=== PATIENT | male | born 1990 ===

== ENCOUNTER 2017-05-12 22:23 | Emergency (ER) | payer OTHER ==
[2017-05-12] MEDS ORDERED: Sodium Chloride 0.9% 1,000 ML IV STA (22:41)
[2017-05-12 23:03] LABS: URINE BACTERIA RARE (<OCC); URINE BILIRUBIN NEGATIVE (NEGATIVE); URINE BLOOD LARGE (NEGATIVE); URINE CLARITY CLEAR (Clear); URINE COLOR YELLOW (YELLOW); URINE GLUCOSE (UA) NEG (Normal); URINE LEUKOCYTE ESTERASE NEG Leu/uL (Negative); URINE NITRATE NEGATIVE (NEGATIVE); URINE PROTEIN 30 mg/dL (NEGATIVE); URINE UROBILINOGEN 0.2-1.0 mg/dL (0.2-1.0)
[2017-05-12 23:07] LABS: BASO # 0.1 K/uL (0.0-0.2); BASO % 0.5 % (0.0-2.0); EOS # 0.3 K/uL (0.0-0.7); EOS % 2.2 % (0.0-4.0); HEMOGLOBIN 14.1 g/dL (12.0-18.0); LYMPH % 17.4 % (20.0-40.0); MEAN CELL VOLUME 82.1 fl (80.0-94.0); MEAN CORPUSCULAR HEMOGLOBIN 28.4 pg (27.0-31.0); MEAN CORPUSCULAR HGB CONC 34.6 g/dL (33.0-37.0); MEAN PLATELET VOLUME 8.4 fl (7.2-11.7); MONO # 0.6 K/uL (0.0-0.8); MONO % 5.3 % (0.0-10.0); NEUT # 8.7 K/uL (1.8-7.0); NEUT % 74.6 % (50.0-75.0); NRBC % 0.1 % (0.0-0.0); RBC 4.96 Mil/uL (4.40-5.90); RED CELL DISTRIBUTION WIDTH 12.7 % (11.5-14.5); WHITE BLOOD COUNT 11.6 K/uL (4.8-10.8)
[2017-05-12 23:10] LABS: BLOOD UREA NITROGEN 16 mg/dl (9-20); CALCIUM 9.5 mg/dL (8.4-10.2); GFR AFRICAN-AMERICAN > 60; GFR NON-AFRICAN AMERICAN > 60
[2017-05-13 00:44] VITALS: BP 117/51; PULSE 57; RESP 14; TEMP 98.3; O2SAT 95
--- NOTE | 2017-05-13 00:55 | ED PDOC ---
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 denies: Other ((-) hematuria) Additional Complaint(s): 26 year old male presents to ED with complaints of intermittent right sided flank pain x2 weeks and has no past medical history. 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 (-) hematuria, (+) nausea, vomiting, and difficulty passing urine. PCP: [facility] Past Medical History Reviewed: Historical Data, Nursing Documentation, Vital Signs Vital Signs: Last Vital Signs Temp 98.3 F 05/13/17 00:43 Pulse 57 L 05/13/17 00:43 Resp 14 05/13/17 00:43 BP 117/51 L 05/13/17 00:43 Pulse Ox 95 05/13/17 01:18 - Medical History PMH: No Chronic Diseases - Surgical History Surgical History: Denies: No Surg Hx - Family History Family History: States: No Known Family Hx - Home Medications Home Medications: Ambulatory Orders Medication Instructions Recorded Ibuprofen [Motrin Tab] 600 mg PO Q6 #30 tab 05/13/17 Tamsulosin [Flomax] 0.4 mg PO DAILY #20 cap 05/13/17 traMADol [Ultram] 50 mg PO Q8 #12 tab 05/13/17 - Allergies Allergies/Adverse Reactions: Allergies Allergy/AdvReac Type Severity Reaction Status Date / Time No Known Allergies Allergy Verified 05/12/17 22:25 Review of Systems ROS Statement: Except As Marked, All Systems Reviewed And Found Negative Gastrointestinal: Positive for: Nausea, Vomiting, Abdominal Pain (right sided flank pain) Genitourinary Male: Positive for: Other (difficulty passing urine). Negative for: Hematuria Physical Exam - Reviewed Nursing Documentation Reviewed: Yes Vital Signs Reviewed: Yes - Physical Exam Appears: Positive for: Non-toxic, Uncomfortable Skin: Positive for: Normal Color, Warm, Dry Cardiovascular/Chest: Positive for: Regular Rate, Rhythm. Negative for: Murmur Respiratory: Positive for: Normal Breath Sounds. Negative for: Respiratory Distress Gastrointestinal/Abdominal: Positive for: Soft, Tenderness Back: Positive for: R CVA Tenderness Extremity: Positive for: Normal ROM. Negative for: Deformity Neurologic/Psych: Positive for: Alert, Oriented. Negative for: Motor/Sensory Deficits - Laboratory Results Result Diagrams: 05/12/17 22:57 05/12/17 22:57 - ECG O2 Sat by Pulse Oximetry: 95 (RA) Pulse Ox Interpretation: Normal Medical Decision Making Medical Decision Makin Initial impression: kidney stone Initial plan: * CT A/P * Labs * NS IV * Toradol 30mg IVP * Zofran Inj 4mg IVP * UCx * UA * Re-eval 0000 Upon re-evaluation, patient is feeling much better secondary to administered medications. CT FINDINGS Lower thorax: The visualized portions of the lung bases are normal. ABDOMEN: Liver: There is diffuse mild enlargement of the liver. Gallbladder and bile ducts: The gallbladder is normal. No calcified stones. No ductal dilation. Pancreas: The pancreas is unremarkable in its noncontrast appearance. No ductal dilation. Spleen: Unremarkable. Adrenals: The adrenal glands are normal. Kidneys and ureters: There is a 3 mm hyperdensity on the right side of the bladder base, questionably a stone at the right ureterovesicular junction. There is mild right hydronephrosis. There is mild right perinephric stranding. There is mild proximal right hydroureter. There is extensive fat stranding in the right lower abdomen at the level of the pelvic inlet and the distal course of the right ureter is difficult to trace. There are punctate nonobstructing left renal calculi. Stomach and bowel: There is suggestion of thickening and fat stranding involving the terminal ileum and cecum. No evidence of bowel traction. Appendix: The appendix is felt to be visualized and normal in caliber. PELVIS: Bladder: The bladder is again difficult to evaluate. See above. Reproductive: Unremarkable as visualized. ABDOMEN and PELVIS: Intraperitoneal space: Unremarkable. No free air. No significant fluid collection. Bones/joints: No acute fracture. No dislocation. Soft tissues: Unremarkable. Vasculature: Unremarkable. No abdominal aortic aneurysm. Lymph nodes: There multiple enlarged lymph nodes in the right mid and lower abdomen that measure up to 1.5 cm in short axis dimension. IMPRESSION: There is a significant inflammatory process in the right lower abdomen including the region of the cecum, terminal ileum and multiple adjacent enlarged lymph nodes. There is also right hydronephrosis and proximal hydroureter, with mild adjacent fat stranding. The right ureter is difficult to trace beyond this inflammatory process in the right lower abdomen. There is also a punctate hyperdensity on the right side of the bladder, questionably a calculus at the right ureterovesicular junction. The appendix is felt to be visualized and unremarkable. Note that assessment of the bowel is limited on this noncontrast study. Diagnostic possibilities include an ileal colitis with adjacent lymphadenopathy. The changes in the right kidney may be related to secondary involvement of the right ureter at this level or due to a distal calculus incidentally noted. Please consider the possibility of Crohn's disease. The patient may benefit from evaluation including intravenous and enteric contrast, but the need for an additional CT study should be correlated in the clinical context. [address] results with patient. Patient notes intermittent abdominal pain x2 weeks that was not severe until x2 hours CREDIT OFFICE MANAGER to ED. (-) diarrhea, constipation, bloody stools, fever, or weight loss. Discussed possibility of inflammatory bowel disease and patient verbalizes his understanding of that as well as of the importance of following up. Patient notes that he will call his insurance carrier tomorrow to arrange for a follow up within network. Strict return precautions given to patient, including worsening abdominal pain, nausea, vomiting, diarrhea with bloody stools, or any other concerning symptoms. Discussed Tramadol prescription for patient including potential for addiction and other risks/benefits. Patient verbalizes understanding with Tramadol. Patient has been searched for in [facility] and is clear. Patient is stable for discharge. Scribe Attestation: Documented by Megan Lira acting as a scribe for Artemio Monreal MD. Scribe Attestation: All medical record entries made by the Scribe were at my direction and personally dictated by me. I have reviewed the chart and agree that the record accurately reflects my personal performance of the history, physical exam, medical decision making, and the department course for this patient. I have also personally directed, reviewed, and agree with the discharge instructions and disposition. Disposition - Clinical Impression Clinical Impression: Renal colic - Disposition Referrals: Dain Rios MD [Medical Doctor] - Disposition: Routine/Home Disposition Time: 00:40 Condition: IMPROVED Prescriptions: Ibuprofen [Motrin Tab] 600 mg PO Q6 #30 tab Tamsulosin [Flomax] 0.4 mg PO DAILY #20 cap traMADol [Ultram] 50 mg PO Q8 #12 tab Instructions: Renal Colic (ED), Acute Abdominal Pain (ED)
--- NOTE | 2017-05-13 09:38 | CT ---
PROCEDURE: CT Abdomen and Pelvis without intravenous contrast HISTORY: R sided flank pain, r/o kidney stone COMPARISON: None. TECHNIQUE: CT scan of the abdomen and pelvis was performed without administration of intravenous contrast. Oral contrast was not administered. Coronal and sagittal reformatted images were obtained. Radiation dose: Total exam DLP = 338.68 mGy-cm. This CT exam was performed using one or more of the following dose reduction techniques: Automated exposure control, adjustment of the mA and/or kV according to patient size, and/or use of iterative reconstruction technique. FINDINGS: LOWER THORAX: The lung bases are clear. LIVER: The liver is normal in size. No gross lesion or ductal dilatation. GALLBLADDER AND BILE DUCTS: No calcified gallstones. PANCREAS: Normal in size. No gross lesion or ductal dilatation. SPLEEN: There is borderline splenomegaly. ADRENALS: Both adrenal glands are normal in size without discrete nodule. . KIDNEYS AND URETERS: There is mild edema and enlargement of the right kidney with perinephric fat stranding, mild hydronephrosis and mild diffuse dilatation of the right ureteral. There is a 4 mm stone in the urinary bladder on the right. The left kidney is normal in size. There are punctate nonobstructing stones in the interpolar region of the left kidney. No hydronephrosis. The left ureteral is not dilated. VASCULATURE: No aortic aneurysm. BOWEL: The small bowel loops are normal in caliber. There is significant inflammation in the mesentery fat in the right lower quadrant and indistinct appearance of the terminal ileum. The colon is unremarkable. APPENDIX: The appendix is not distinctly identified. PERITONEUM: No free fluid. No free air. LYMPH NODES: There are multiple enlarged lymph nodes in the right lower quadrant. BLADDER: Decompressed. REPRODUCTIVE: Unremarkable. BONES: No acute fracture. OTHER FINDINGS: None. IMPRESSION: Findings are compatible with recent passage of 4 mm right renal /ureteral stone which is now identified in the urinary bladder on the right. Also noted is significant inflammatory changes in the right lower quadrant with enlarged mesenteric lymph nodes. The appendix is not distinctly identified. Findings could represent nonspecific elongated, mesenteric adenitis or acute appendicitis. Please note evaluation of the bowel is limited in the absence of oral contrast. Clinical follow-up is advised. A preliminary report was provided by [email or web address].
== END 2017-05-13 01:30 | disposition home or self-care (01) ==
LOC: H.ER 22:23
DX: N23 Unspecified renal colic (principal)
CPT/HCPCS: 74176; 80048; 81003; 85025; 87086; 96361; 96374; 96375; 99283; J1885; J2405; J7040